=== PATIENT | male | born 1930 | race Caucasian/White ===

== ENCOUNTER 2017-08-03 07:06 | Emergency (ER) | payer MEDICARE, BC ==
[2017-08-03] MEDS ORDERED: ONDANSETRON 4 MG/2 ML VIAL IVP STA (07:31)
[2017-08-03] MEDS ORDERED: RX INFO: IV CONTRAST WAS GIVEN 1 EACH MISC MISCELLANE PRN (07:32)
[2017-08-03] MEDS ORDERED: FAMOTIDINE 20 MG/2 ML VIAL IV STA (07:32)
--- NOTE | 2017-08-03 07:38 | ED ---
General Adult HPI - General Chief complaint: Chest Pain Stated complaint: Chest/stomach pain Time Seen by Provider: 08/03/17 07:14 Source: patient, RN notes reviewed, old records reviewed Mode of arrival: wheelchair Limitations: no limitations - History of Present Illness Initial comments: 87-year-old male presents with chief complaint of abdominal pain and nausea vomiting. Patient has past medical history of CAD status post CABG. He does complain of some associated chest pain. Abdominal pain began yesterday was sharp and crampy in nature. He had approximately 20 episodes of vomiting throughout this morning. Patient has been unable to tolerate anything by mouth. Pain in his stomach is intermittent. Symptoms began after eating chicken. States his last bowel movement was yesterday morning and was normal. Denies melena. Denies rectal bleeding. Denies blood in his emesis. Patient states he has had subjective fever and chills. He also complains of shortness of breath which she attributes to known history of CAD. No history of asthma or COPD. - Related Data Home Medications Medication Instructions Recorded Confirmed Atenolol [Tenormin] 25 mg PO QAM 05/14/14 08/03/17 Atorvastatin [Lipitor] 20 mg PO HS 05/14/14 08/03/17 Clopidogrel [Plavix] 75 mg PO DAILY 05/14/14 08/03/17 Finasteride [Proscar] 5 mg PO DAILY 05/14/14 08/03/17 Hydrochlorothiazide [Hydrodiuril] 12.5 mg PO DAILY 05/14/14 08/03/17 Losartan [Cozaar] 50 mg PO HS 05/14/14 08/03/17 Pantoprazole Sodium [Protonix] 40 mg PO HS 05/14/14 08/03/17 Aspirin EC [Ecotrin Low Dose] 81 mg PO DAILY 02/29/16 08/03/17 Sucralfate [Carafate] 1 gm PO BID 02/29/16 08/03/17 Multivitamin [Men's Multi-Vitamin] 1 tab PO DAILY 03/01/16 08/03/17 Nitroglycerin Sl Tabs [Nitrostat] 0.4 mg SUBLINGUAL Q5M PRN 03/01/16 08/03/17 Glucosamine Sulfate 1,500 mg PO DAILY 04/29/16 08/03/17 Ranolazine [Ranexa] 500 mg PO BID 04/29/16 08/03/17 Allergies Allergy/AdvReac Type Severity Reaction Status Date / Time No Known Allergies Allergy Verified 08/03/17 08:24 Review of Systems ROS Statement: Those systems with pertinent positive or pertinent negative responses have been documented in the HPI. ROS Other: All systems not noted in ROS Statement are negative. Past Medical History Past Medical History: Coronary Artery Disease (CAD), Chest Pain / Angina, GERD/ Reflux, Hyperlipidemia, Hypertension, Myocardial Infarction (MT), Prostate Disorder Additional Past Medical History / Comment(s): hiatal hernia, arrythmia (denies Atrial fib or prior need for full anticoagulation), osteoarthritis of hips Last Myocardial Infarction Date:: 1988 History of Any Multi-Drug Resistant Organisms: None Reported Past Surgical History: Coronary Bypass/CABG, Heart Catheterization, Tonsillectomy Additional Past Surgical History / Comment(s): zoila cataracts Past Anesthesia/Blood Transfusion Reactions: No Reported Reaction Past Psychological History: No Psychological Hx Reported Smoking Status: Former smoker Past Alcohol Use History: None Reported Past Drug Use History: None Reported - Past Family History Father Family Medical History: Cancer Mother Family Medical History: Cancer Brother(s) Family Medical History: Cancer Sister(s) Family Medical History: Cancer General Exam Limitations: no limitations General appearance: alert, in no apparent distress Head exam: Present: atraumatic, normocephalic Eye exam: Present: normal appearance, PERRL ENT exam: Present: normal exam Neck exam: Present: normal inspection. Absent: tenderness, meningismus Respiratory exam: Present: normal lung sounds bilaterally, other (Mild tachypnea with good air entry). Absent: respiratory distress Cardiovascular Exam: Present: regular rate, normal rhythm, systolic murmur GI/Abdominal exam: Present: soft, distended, tenderness (Generalized tenderness to palpation), hypoactive bowel sounds Extremities exam: Present: normal inspection, normal capillary refill, other ( Bilateral distal pulses intact). Absent: pedal edema Back exam: Present: normal inspection, full ROM. Absent: tenderness Neurological exam: Present: alert, oriented X3, CN II-XII intact. Absent: motor sensory deficit Psychiatric exam: Present: normal affect, normal mood Skin exam: Present: warm, dry, intact. Absent: cyanosis, diaphoretic Course Vital Signs 08/03/17 08/03/17 08/03/17 07:10 08:08 09:15 Temperature 97.4 F L Pulse Rate 62 52 L 53 L Respiratory 22 20 16 Rate Blood Pressure 141/69 183/92 151/70 O2 Sat by Pulse 95 99 100 Oximetry - Reevaluation(s) Reevaluation #1: 08/03/17 09:23 Patient unable to tolerate liquids in the emergency department. EKG Findings - EKG Comments: EKG Findings:: Sinus rhythm, incomplete right bundle branch block, ventricular rate 57, IL interval 1 3200 ms QRS duration 92, QTC 443 Medical Decision Making - Medical Decision Making 87-year-old male presenting with epigastric abdominal pain and chest pain as well as vomiting and inability to tolerate anything by mouth. Abdominal examination: Distended, diffusely tender primarily in the epigastrium. Acute abdominal series obtained, this is negative. Laboratory studies reveal white blood cell count 6.7, hemoglobin 12.7, creatinine 1.26 which is patient's baseline. Troponin is 0.015, BMP normal, lipase normal. Liver enzymes normal. CT is obtained which is suggestive of esophageal intraluminal irregularities suggestive of foreign body, neoplasm or polyp. Patient does admit to being unable to tolerate any thing by mouth after eating chicken at 5 PM yesterday. Case discussed with Dr. Myrick, patient will be admitted for further evaluation and treatment. NPO, Zofran, Reglan, and IV fluids. - Lab Data Result diagrams: 08/03/17 07:29 08/03/17 07:29 Lab Results 08/03/17 08/03/17 08/03/17 Range/Units 07:29 07:29 07:29 WBC 6.3 (3.8-10.6) k/uL RBC 3.86 L (4.30-5.90) m/uL Hgb 12.7 L (13.0-17.5) gm/dL Hct 37.6 L (39.0-53.0) % MCV 97.4 (80.0-100.0) fL MCH 32.9 (25.0-35.0) pg MCHC 33.8 (31.0-37.0) g/dL RDW 13.1 (11.5-15.5) % Plt Count 166 (150-450) k/uL Neutrophils % 69 % Lymphocytes % 16 % Monocytes % 7 % Eosinophils % 5 % Basophils % 0 % Neutrophils # 4.4 (1.3-7.7) k/uL Lymphocytes # 1.0 (1.0-4.8) k/uL Monocytes # 0.4 (0-1.0) k/uL Eosinophils # 0.3 (0-0.7) k/uL Basophils # 0.0 (0-0.2) k/uL PT (9.0-12.0) sec INR (<1.2) APTT (22.0-30.0) sec Sodium 144 (137-145) mmol/L Potassium 3.9 (3.5-5.1) mmol/L Chloride 104 (98-107) mmol/L Carbon Dioxide 23 (22-30) mmol/L Anion Gap 17 mmol/L BUN 23 H (9-20) mg/dL Creatinine 1.26 H (0.66-1.25) mg/dL Est GFR (MDRD) Af Amer >60 (>60 ml/min/1.73 sqM) Est GFR (MDRD) Non-Af 54 (>60 ml/min/1.73 sqM) Glucose 107 H (74-99) mg/dL Plasma Lactic Acid Jovany (0.7-2.0) mmol/L Calcium 10.1 (8.4-10.2) mg/dL Magnesium 1.6 (1.6-2.3) mg/dL Total Bilirubin 0.9 (0.2-1.3) mg/dL AST 32 (17-59) U/L ALT 48 (21-72) U/L Alkaline Phosphatase 61 (38-126) U/L Total Creatine Kinase 84 (55-170) U/L CK-MB (CK-2) 2.6 H* (0.0-2.4) ng/mL CK-MB (CK-2) Rel Index 3.1 Troponin I 0.015 (0.000-0.034) ng/mL NT-Pro-B Natriuret Pep pg/mL Total Protein 6.9 (6.3-8.2) g/dL Albumin 4.4 (3.5-5.0) g/dL Amylase 86 (30-110) U/L Lipase 96 (23-300) U/L 01/09/18 01/09/18 01/09/18 Range/Units 07:29 07:29 07:29 WBC (3.8-10.6) k/uL RBC (4.30-5.90) m/uL Hgb (13.0-17.5) gm/dL Hct (39.0-53.0) % MCV (80.0-100.0) fL MCH (25.0-35.0) pg MCHC (31.0-37.0) g/dL RDW (11.5-15.5) % Plt Count (150-450) k/uL Neutrophils % % Lymphocytes % % Monocytes % % Eosinophils % % Basophils % % Neutrophils # (1.3-7.7) k/uL Lymphocytes # (1.0-4.8) k/uL Monocytes # (0-1.0) k/uL Eosinophils # (0-0.7) k/uL Basophils # (0-0.2) k/uL PT 9.9 (9.0-12.0) sec INR 1.0 (<1.2) APTT 24.6 (22.0-30.0) sec Sodium (137-145) mmol/L Potassium (3.5-5.1) mmol/L Chloride (98-107) mmol/L Carbon Dioxide (22-30) mmol/L Anion Gap mmol/L BUN (9-20) mg/dL Creatinine (0.66-1.25) mg/dL Est GFR (MDRD) Af Amer (>60 ml/min/1.73 sqM) Est GFR (MDRD) Non-Af (>60 ml/min/1.73 sqM) Glucose (74-99) mg/dL Plasma Lactic Acid Jovany 1.7 (0.7-2.0) mmol/L Calcium (8.4-10.2) mg/dL Magnesium (1.6-2.3) mg/dL Total Bilirubin (0.2-1.3) mg/dL AST (17-59) U/L ALT (21-72) U/L Alkaline Phosphatase (38-126) U/L Total Creatine Kinase (55-170) U/L CK-MB (CK-2) (0.0-2.4) ng/mL CK-MB (CK-2) Rel Index Troponin I (0.000-0.034) ng/mL NT-Pro-B Natriuret Pep 743 pg/mL Total Protein (6.3-8.2) g/dL Albumin (3.5-5.0) g/dL Amylase (30-110) U/L Lipase (23-300) U/L Disposition Clinical Impression: Chest pain, Esophageal foreign body Disposition: ADMITTED IP TO THIS [facility] Condition: Stable Referrals: Clyde Hassan MD [Primary Care Provider] - 1-2 days Decision to Admit Reason: Admit from EC Decision Date: 08/03/17 Decision Time: 10:45
[2017-08-03 07:45] LABS: Basophils % (A) 0 %; Eosinophils # (A) 0.3 k/uL (0-0.7); Eosinophils % (A) 5 %; HCT 37.6 % (39.0-53.0); HGB 12.7 gm/dL (13.0-17.5); Lymphocytes % (A) 16 %; MCH 32.9 pg (25.0-35.0); MCHC 33.8 g/dL (31.0-37.0); MCV 97.4 fL (80.0-100.0); Mean Platelet Volume 7.3; Monocytes # (A) 0.4 k/uL (0-1.0); Monocytes % (A) 7 %; Neutrophils # (A) 4.4 k/uL (1.3-7.7); Neutrophils % (A) 69 %; Platelet Count 166 k/uL (150-450); RBC 3.86 m/uL (4.30-5.90); RDW 13.1 % (11.5-15.5); WBC 6.3 k/uL (3.8-10.6)
[2017-08-03 07:54] LABS: Partial Thromboplastin Time 24.6 sec (22.0-30.0); Prothrombin Time 9.9 sec (9.0-12.0)
[2017-08-03 08:13] LABS: ALT 48 U/L (21-72); AST 32 U/L (17-59); Albumin 4.4 g/dL (3.5-5.0); Alkaline Phosphatase 61 U/L (38-126); Amylase 86 U/L (30-110); Anion Gap 17 mmol/L; Blood Urea Nitrogen 23 mg/dL (9-20); Calcium 10.1 mg/dL (8.4-10.2); Carbon Dioxide 23 mmol/L (22-30); Chloride 104 mmol/L (98-107); Glucose 107 mg/dL (74-99); Lipase 96 U/L (23-300); Magnesium 1.6 mg/dL (1.6-2.3); Potassium 3.9 mmol/L (3.5-5.1); Sodium 144 mmol/L (137-145); Total Bilirubin 0.9 mg/dL (0.2-1.3); Total Protein 6.9 g/dL (6.3-8.2)
[2017-08-03 08:24] LABS: Troponin I 0.015 ng/mL (0.000-0.034)
[2017-08-03 08:28] LABS: Creatine Kinase MB 2.6 ng/mL (0.0-2.4)
--- NOTE | 2017-08-03 08:29 | XR ---
EXAMINATION TYPE: XR abdomen acute w cxr DATE OF EXAM: 08/03/2017 COMPARISON: NONE HISTORY: Pain TECHNIQUE: Supine, upright, and left side down lateral decubitus views of the abdomen and frontal vi ew of the chest are obtained. FINDINGS: Changes of COPD are noted. Arthropathy of the shoulders. Hyperinflation. Postsurgical nation es. No consolidation. Degenerative change of the spine arthropathy of the hips. Vascular calcifications noted. Wall the aor ta is not clearly defined could be correlated with CT scan. Bowel gas pattern nonspecific. IMPRESSION: 1. Nonspecific abdomen.
[2017-08-03] MEDS ORDERED: SODIUM CHLORIDE 0.9% 1,000 ML IV SCH (09:00)
--- NOTE | 2017-08-03 09:11 | CT ---
EXAMINATION TYPE: CT abdomen pelvis w con DATE OF EXAM: 08/03/2017 COMPARISON: NONE INDICATION: chest pain, upper abd pain, vomiting DLP: 917.9 mGycm, Automated exposure control for dose reduction was used. CONTRAST: 100 mL of Omnipaque 300. Study performed without Oral Contrast TECHNIQUE: Axial images were obtained from above the diaphragm to the pubic rami in the axial plane a t 5 mm thick sections. Reconstructed images are reviewed on the computer in the coronal plane. FINDINGS: Limited CT sections are obtained the lung bases. The lung bases are clear. There is a moderate size hiatal hernia. Contrast within the distal esophagus compatible with reflux. There may be some fillin g with debris within the hiatal hernia. Consider direct visualization. Foreign body or polyp could be considered. Neoplasm is not excluded. CT ABDOMEN: Liver: Normal Spleen: Normal Pancreas: Normal Adrenal glands: The adrenal glands are normal. Gallbladder: Normal Kidneys: No masses are evident. No hydronephrosis is present. No cysts are present. Delayed images were obtained through the kidneys, which remain unremarkable. Aorta: Vascular calcification is within the aorta. Inferior vena cava: Normal. CT PELVIS: Loops of bowel within the abdomen and pelvis are normal. Loops of bowel are without oral contrast limiting the evaluation. No contrast from the esophagus is evident within the stomach. Note is made of diverticular changes within the sigmoid colon. No acute diverticulitis is evident. Appendix: Normal as visualized. Urinary bladder: Normal. Genitourinary structures: Prostate has mild prominence. Osseous structures: No suspicious lytic or sclerotic lesions. Degenerative changes are through the lo wer lumbar spine facets. IMPRESSIONS: 1. There may be a filling defect within the distal esophagus. Small to moderate size hiatal hernia i s present. Differential could include foreign body, polyp, or neoplasm. Consider direct visualization . 2. Contrast within the distal esophagus and hiatal hernia. However, no contrast is identified within the stomach or proximal small bowel loops. 3. Diverticulosis without acute diverticulitis.
[2017-08-03] MEDS ORDERED: GLUCAGON 1 MG/ML VIAL IVP STA (09:21)
[2017-08-03] MEDS ORDERED: ONDANSETRON 4 MG/2 ML VIAL IVP PRN (10:40)
[2017-08-03] MEDS ORDERED: NALOXONE 0.4 MG/ML 1 ML VIAL IV PRN (10:40)
--- NOTE | 2017-08-03 11:36 | P.CONS ---
History of Present Illness - Reason for Consult Consult date: 08/03/17 Dysphagia Requesting physician: J Luis Kim - History of Present Illness 87-year-old gentleman with a history of CAD previous bypass medically managed on aspirin Plavix presents with acute dysphagia. Patient ate [place] fried chicken last night around 5 PM. He took 3 bites of the chicken leg and developed dysphagia with chest pressure in the mid esophageal region. He has vomited several times undigested food. Denies hematemesis hematochezia melena. No history of this type with dysphagia. Denies shortness of breath. EGD April 2016 for evaluation of intermittent GERD and mild dysphagia identified mild antral gastritis and a small sliding type hiatal hernia but no evidence of esophagitis. Home medications include but not limited to baby aspirin, Plavix, omeprazole daily and Carafate [address] abdomen and pelvis reported a possible filling defect within the distal esophagus with a small to moderate hiatal hernia. Contrast within the distal esophagus however no contrast was identified within the stomach or proximal small bowel loops. Hemoglobin 12.7. White count 6.3. platelet 166. INR 1.0. BUN 23. Creatinine 1.2. Troponin 0.015. Review of Systems Constitutional: Denies fever, chills, sweats, weight gain, or loss. HEENT: Negative for migraines, blurred vision or loss, earaches, drainage, tinnitus, oral mucosal lesions, dysphagia, or odynophagia. Cardiac: CAD. CABG. PCI stent. Hypertension. Hyperlipidemia. MS. Negative for chest pain, arrhythmias, or palpitation. Respiratory: Negative for shortness of breath, hemoptysis, cough, or sputum production. Gastrointestinal: See HPI for pertinent findings. Genitourinary: Negative for hematuria, urgency, frequency, polyuria, dysuria, or penile discharge. Musculoskeletal: Negative for muscle aches, swelling, arthritis, and arthralgias. Neurologic: Negative for stroke or TIA. Endocrine: Negative for thyroid problems. Skin: Negative for rash or itching. Psychiatric: Negative history for depression and anxiety Past Medical History Past Medical History: Coronary Artery Disease (CAD), Chest Pain / Angina, GERD/ Reflux, Hyperlipidemia, Hypertension, Myocardial Infarction (MS), Prostate Disorder Additional Past Medical History / Comment(s): hiatal hernia, arrythmia (denies Atrial fib or prior need for full anticoagulation), osteoarthritis of hips Last Myocardial Infarction Date:: 1988 History of Any Multi-Drug Resistant Organisms: None Reported Past Surgical History: Coronary Bypass/CABG, Heart Catheterization, Tonsillectomy Additional Past Surgical History / Comment(s): zoila cataracts Past Anesthesia/Blood Transfusion Reactions: No Reported Reaction Past Psychological History: No Psychological Hx Reported Smoking Status: Former smoker Past Alcohol Use History: None Reported Past Drug Use History: None Reported - Past Family History Father Family Medical History: Cancer Mother Family Medical History: Cancer Brother(s) Family Medical History: Cancer Sister(s) Family Medical History: Cancer Medications and Allergies Home Medications Medication Instructions Recorded Confirmed Type Atenolol [Tenormin] 25 mg PO QAM 05/14/14 08/03/17 History Atorvastatin [Lipitor] 20 mg PO HS 05/14/14 08/03/17 History Clopidogrel [Plavix] 75 mg PO DAILY 05/14/14 08/03/17 History Finasteride [Proscar] 5 mg PO DAILY 05/14/14 08/03/17 History Hydrochlorothiazide [Hydrodiuril] 12.5 mg PO DAILY 05/14/14 08/03/17 History Losartan [Cozaar] 50 mg PO HS 05/14/14 08/03/17 History Pantoprazole Sodium [Protonix] 40 mg PO HS 05/14/14 08/03/17 History Aspirin EC [Ecotrin Low Dose] 81 mg PO DAILY 02/29/16 08/03/17 History Sucralfate [Carafate] 1 gm PO BID 02/29/16 08/03/17 History Multivitamin [Men's Multi-Vitamin] 1 tab PO DAILY 03/01/16 08/03/17 History Nitroglycerin Sl Tabs [Nitrostat] 0.4 mg SUBLINGUAL Q5M PRN 03/01/16 08/03/17 History Glucosamine Sulfate 1,500 mg PO DAILY 04/29/16 08/03/17 History Ranolazine [Ranexa] 500 mg PO BID 04/29/16 08/03/17 History Allergies Allergy/AdvReac Type Severity Reaction Status Date / Time No Known Allergies Allergy Verified 08/03/17 08:24 Physical Exam Vitals: Vital Signs Temp Pulse Resp BP Pulse Ox 08/03/17 11:16 53 L 16 146/73 100 08/03/17 09:15 53 L 16 151/70 100 08/03/17 08:08 52 L 20 183/92 99 08/03/17 07:10 97.4 F L 62 22 141/69 95 Intake and Output 08/02/17 08/03/17 08/03/17 22:59 06:59 14:59 Other: Weight 81.647 kg Patient Weight 08/04/17 06:59 Weight 81.647 kg General appearance: The patient is alert, oriented, in no acute distress. HET: Head is normocephalic and atraumatic. Pupils are equal and reactive. Oropharynx is clear without lesions. Neck: Supple without lymphadenopathy. Trachea midline. Heart: S1 S2. Regular rate and rhythm. Lungs: No crackles or wheezes are heard. Abdomen: Soft, nontender, nondistended with bowel sounds. No peritoneal signs. No palpable organomegaly or masses. Extremities: Normal skin color and turgor. No cyanosis, rash, ulceration, clubbing, or edema. Radial and pedal pulses are 2/4 bilaterally. Neurological: No focal deficits. Strength and sensation are grossly intact. Results CBC & Chem 7: 08/03/17 07:29 08/03/17 07:29 Labs: Abnormal Lab Results - Last 24 Hours (Table) 08/03/17 08/03/17 08/03/17 Range/Units 07:29 07:29 07:29 RBC 3.86 L (4.30-5.90) m/uL Hgb 12.7 L (13.0-17.5) gm/dL Hct 37.6 L (39.0-53.0) % BUN 23 H (9-20) mg/dL Creatinine 1.26 H (0.66-1.25) mg/dL Glucose 107 H (74-99) mg/dL CK-MB (CK-2) 2.6 H* (0.0-2.4) ng/mL CT scan - abdomen: report reviewed (Dr. Myrick) Assessment and Plan (1) Dysphagia Narrative/Plan: Acute dysphagia suspect foreign body after eating a chicken dinner yesterday afternoon with underlying cardiac disease requesting to be treated conservatively. Current Visit: Yes Status: Acute Code(s): R13.10 - DYSPHAGIA, UNSPECIFIED SNOMED Code(s): 32752475 (2) Esophageal foreign body Current Visit: Yes Status: Acute Code(s): T18.108A - UNSP FOREIGN BODY IN ESOPHAGUS CAUSING OTH INJURY, INIT SNOMED Code(s): 30979960 Plan: 1. EGD. 2. IV Protonix 20 mg twice daily. 3. Continue with nothing by mouth status. The transportation assistant has discussed the risks, benefits and alternative therapies for the above-mentioned procedure and for both sedation/analgesia as well as necessary blood product administration, if indicated, as they pertain to this patient. The patient has indicated understanding and acceptance of the risks and procedures discussed. Thank you for this kind referral and the opportunity to participate in the care of your patient. This consultation was discussed with Dr. Myrick. The impression and plan of care have been directed as dictated.
[2017-08-03] MEDS ORDERED: METOCLOPRAMIDE 5 MG/ML 2 ML VIAL IVP SCH (12:00)
[2017-08-03 14:57] VITALS: TEMP 96.9
[2017-08-03 16:19] VITALS: RESP 18
[2017-08-03] MEDS ORDERED: PROPOFOL 10 MG/ML 20 ML VIAL IV ONE (17:04)
[2017-08-03] MEDS ORDERED: SODIUM CHLORIDE 0.9% 900 ML IV ONE (17:45)
[2017-08-03 18:27] VITALS: BP 158/74; PULSE 55
[2017-08-03] MEDS ORDERED: PANTOPRAZOLE 40 MG/10 ML VIAL IV SCH (21:00)
[2017-08-04] MEDS ORDERED: PANTOPRAZOLE 40 MG/10 ML VIAL IV SCH (09:00)
--- NOTE | 2017-08-04 10:00 | PCN ---
PROCEDURE NOTE DATE OF SERVICE: 08/03/2017 REQUESTING PHYSICIAN: Dr. Clyde Hassan. BRIEF HISTORY: Patient is an 87-year-old pleasant white male, came to the emergency room with acute food dysphagia. He was eating a piece of chicken yesterday evening for dinner and could not swallow any further and since then he started complaining of some epigastric pain and chest pain. He came into the emergency room this morning and he is scheduled for an upper endoscopy at the bedside for foreign body removal. PROCEDURE PERFORMED: EGD with foreign body removal. PREOPERATIVE DIAGNOSIS: Acute for dysphagia. ANESTHESIA: IV sedation per Anesthesia. DESCRIPTION OF PROCEDURE: After informed consent was obtained from the patient, the procedure was performed in the Emergency Room at the bedside. IV conscious sedation was administered by Anesthesia under continuous monitoring. The Olympus GF 190 video endoscope was inserted in the mouth, esophagus intubated without any difficulty and immediately there was a large amount of retained liquid and solid food particles in the dilated esophagus. The scope was gently advanced into the distal esophagus and a large piece of meat was found impacted. Using the [employer], part of the piece was piecemealed and snared out and pulled out of the mouth. Subsequently, I was able to push the rest of the food bolus into the stomach and the scope at this time was advanced into the pylorus and duodenum. The bulb and the second part of the duodenum appeared normal. The scope at this time was withdrawn to the stomach adequately insufflated with air and upon careful examination, because of antrum body, cardia and fundus appeared normal. Scope was then withdrawn to the esophagus. The GE junction was located at 36 cm from the incisors. There was a distal esophageal stricture identified which did not impede the passage of the scope. The mucosa of the distal esophagus appeared very erythematous. At this time, several small chunks of meat that was located in the proximal and mid esophagus and gently I was able to push the food particles into the stomach without any difficulty. At this time, the procedure was terminated. The patient tolerated the procedure well. IMPRESSION: 1. Food bolus impaction in the distal esophagus, status post removal as described above. 2. Distal esophageal stricture. 3. Dilated tortuous esophagus suggestive of possible esophageal dysmotility. RECOMMENDATION: Findings of this examination were discussed with the patient's family. Today he was advised to remain on a clear liquid diet today and advance to soft diet tomorrow. He was also advised to start on Prilosec 20 mg daily and follow up in the office in 2 to 3 weeks. MMODL / IJN: [id number] /
== END 2017-08-03 18:27 | disposition other institution (70) ==
LOC: EC 07:06
DX: T18.128A Food in esophagus causing other injury, initial encounter (principal); R07.9 Chest pain, unspecified; R11.10 Vomiting, unspecified; R50.9 Fever, unspecified; R10.13 Epigastric pain; I25.10 Atherosclerotic heart disease of native coronary artery without angina pectoris; K21.9 Gastro-esophageal reflux disease without esophagitis; E78.5 Hyperlipidemia, unspecified; I10 Essential (primary) hypertension; I25.2 Old myocardial infarction; Z87.891 Personal history of nicotine dependence; Z79.01 Long term (current) use of anticoagulants; Z79.899 Other long term (current) drug therapy; Z95.1 Presence of aortocoronary bypass graft
CPT/HCPCS: 99285 ×2; 96374 ×2; 96375 ×4; 96361 ×10; 36415; 93005; 83880; 80053; 82150; 82550; 82553; 83605; 83690; 83735; 84484; 85025; 85610; 85730; 74022; 74177; 43247; J1610; J2765; J2405; Q9967; J2704

== ENCOUNTER 2017-11-16 10:09 | Emergency (ER) | payer MEDICARE, BC ==
[2017-11-16] MEDS ORDERED: GLUCAGON 1 MG/ML VIAL IVP STA (10:24)
[2017-11-16] MEDS ORDERED: METOCLOPRAMIDE 5 MG/ML 2 ML VIAL IVP STA (10:24)
--- NOTE | 2017-11-16 10:31 | ED ---
General Adult HPI <JulioJ Luis - Last Filed: 11/16/17 11:18> - General Source: patient, RN notes reviewed Mode of arrival: ambulatory Limitations: no limitations <Cricket Briggs - Last Filed: 11/16/17 12:32> - General Chief complaint: ENT Stated complaint: esophagus issues Time Seen by Provider: 11/16/17 10:24 - History of Present Illness Initial comments: This is a 87-year-old male presents emergency Department with chief complaint of food stuck in his esophagus. Patient states she's had this happened in July of this year in which he was told he had a hiatal hernia. Patient states that he was eating some chicken last night states it got caught which feels to be in his lower esophagus region towards his stomach. He states ever since and he cannot eat or drink anything. He has tried several things this morning and drinks coffee and states it comes right back up. He states this is similar symptoms he had last time. He denies any chest pain, shortness breath, abdominal pain, headache or dizziness. Patient did attempt to contact his GI physician who recommended him come to the emergency department. (Cricket Briggs) - Related Data Home Medications Medication Instructions Recorded Confirmed Atenolol [Tenormin] 25 mg PO DAILY 05/14/14 11/16/17 Atorvastatin [Lipitor] 20 mg PO HS 05/14/14 11/16/17 Clopidogrel [Plavix] 75 mg PO DAILY 05/14/14 11/16/17 Finasteride [Proscar] 5 mg PO DAILY 05/14/14 11/16/17 Hydrochlorothiazide [Hydrodiuril] 12.5 mg PO BID 05/14/14 11/16/17 Losartan [Cozaar] 50 mg PO HS 05/14/14 11/16/17 Pantoprazole Sodium [Protonix] 40 mg PO AC-SUPPER 05/14/14 11/16/17 Aspirin EC [Ecotrin Low Dose] 81 mg PO DAILY 02/29/16 11/16/17 Sucralfate [Carafate] 1 gm PO BID 02/29/16 11/16/17 Multivitamin [Men's Multi-Vitamin] 1 tab PO DAILY 03/01/16 11/16/17 Glucosamine Sulfate 1,500 mg PO DAILY 04/29/16 11/16/17 Ranolazine [Ranexa] 500 mg PO BID 04/29/16 11/16/17 amLODIPine [Norvasc] 2.5 mg PO DAILY 11/16/17 11/16/17 Allergies Allergy/AdvReac Type Severity Reaction Status Date / Time No Known Allergies Allergy Verified 11/16/17 10:57 Review of Systems ROS Other: All systems not noted in ROS Statement are negative. <J Luis Kim - Last Filed: 11/16/17 11:18> ROS Other: All systems not noted in ROS Statement are negative. <Cricket Briggs - Last Filed: 11/16/17 12:32> ROS Statement: Those systems with pertinent positive or pertinent negative responses have been documented in the HPI. Past Medical History Past Medical History: Coronary Artery Disease (CAD), Chest Pain / Angina, GERD/ Reflux, Hyperlipidemia, Hypertension, Myocardial Infarction (HI), Prostate Disorder Additional Past Medical History / Comment(s): hiatal hernia, arrythmia (denies Atrial fib or prior need for full anticoagulation), osteoarthritis of hips Last Myocardial Infarction Date:: 1988 History of Any Multi-Drug Resistant Organisms: None Reported Past Surgical History: Coronary Bypass/CABG, Heart Catheterization, Tonsillectomy Additional Past Surgical History / Comment(s): zoila cataracts Past Anesthesia/Blood Transfusion Reactions: No Reported Reaction Past Psychological History: No Psychological Hx Reported Smoking Status: Former smoker Past Alcohol Use History: None Reported Past Drug Use History: None Reported - Past Family History Father Family Medical History: Cancer Mother Family Medical History: Cancer Brother(s) Family Medical History: Cancer Sister(s) Family Medical History: Cancer <Cricket Briggs - Last Filed: 11/16/17 12:32> General Exam Limitations: no limitations General appearance: alert, in no apparent distress Head exam: Present: atraumatic, normocephalic, normal inspection Eye exam: Present: normal appearance, PERRL, EOMI. Absent: scleral icterus, conjunctival injection, periorbital swelling ENT exam: Present: normal exam, normal oropharynx, mucous membranes moist Neck exam: Present: normal inspection, full ROM. Absent: tenderness, meningismus, lymphadenopathy Respiratory exam: Present: normal lung sounds bilaterally. Absent: respiratory distress, wheezes, rales, rhonchi, stridor Cardiovascular Exam: Present: regular rate, normal rhythm, normal heart sounds. Absent: systolic murmur, diastolic murmur, rubs, gallop, clicks GI/Abdominal exam: Present: soft, normal bowel sounds. Absent: distended, tenderness, guarding, rebound, rigid <Cricket Briggs - Last Filed: 11/16/17 12:32> Vital Signs 11/16/17 10:18 Temperature 96.7 F L Pulse Rate 55 L Respiratory 18 Rate Blood Pressure 168/103 O2 Sat by Pulse 98 Oximetry Medical Decision Making <J Luis Kim - Last Filed: 11/16/17 11:18> <Cricket Briggs - Last Filed: 11/16/17 12:32> - Medical Decision Making The patient was seen and examined. It appears that he has an esophageal food bolus of chicken. It is felt as though he would require retrieval via endoscopy. He does have an established relationship with Dr. Myrick from gastroenterology. GI has been paged and case will be discussed with them shortly. The case also was discussed with PA and I agree with the findings as documented. (J Luis Kim) Case discussed with GI and the patient will be taken to an for seizure and discharged under their care. (Cricket Briggs) Disposition <J Luis Kim - Last Filed: 11/16/17 11:18> Is patient prescribed a controlled substance at d/c from ED?: No <Cricket Briggs - Last Filed: 11/16/17 12:32> Clinical Impression: Esophageal obstruction due to food impaction, Hypertension Disposition: ADMITTED IP TO THIS HOSP Condition: Stable Referrals: Clyde Hassan MD [Primary Care Provider] - 1-2 days
[2017-11-16 12:53] VITALS: RESP 16; TEMP 97.6
[2017-11-16] MEDS ORDERED: LACTATED RINGERS 1,000 ML IV ONE (12:55)
[2017-11-16] MEDS ORDERED: PROPOFOL 10 MG/ML 20 ML VIAL IV ONE (14:02)
--- NOTE | 2017-11-16 14:55 | P.PCN ---
Postoperative Diagnosis: Procedure: Esophagogastroduodenoscopy and removal of esophageal foreign body. Preoperative diagnosis: Obstructive dysphagia. Postoperative diagnosis: 1. Impacted piece of meat, first captured with the snare and broken up into a few pieces, then advanced into the stomach with gentle pressure of the endoscope. 2. Hiatal hernia. 3. Esophageal stricture not impeding the advancement of the endoscope. 4. Stomach and duodenum within normal limits. Preparation and sedation: Was provided by anesthesia. Brief clinical history: The patient is an 87-year-old male who presented to the emergency room this morning with obstructive dysphagia that started 5 PM yesterday when he was eating chicken. He had similar episodes in the past that required endoscopic intervention the last was in July of this year. Procedure: With the patient on his left lateral decubitus position and after informed consent and adequate sedation, I passed the Olympus-GIF 160 video upper endoscope through the cricopharyngeus down the esophagus. There was lot of secretions and food debris that were suctioned. The impacted piece of meat was seen in the distal esophagus. I captured it with the endoscope multiple times each time breaking off a piece of it until finally I was able to advance all the pieces into the stomach with gentle pressure of the endoscope. There was a benign appearing stricture that did not impede advancement of the endoscope at around 39 cm from the incisors. The endoscope was then passed through a hiatal hernia to the rest of the stomach which was insufflated with air and inspected in detail including the retroflex view in the cardia. Finally , the endoscope was passed through the pylorus into the duodenum. Pyloric channel, duodenal bulb, post bulbar area and descending duodenum appeared within normal limits. The distal esophagus proximal to the esophageal stricture showed friability and edema secondary to the impacted piece of meat and the intervention with the endoscope. No attempt was made today to dilate the stricture today. The patient tolerated the procedure well. Plan: The patient will stay on clear liquids today. He can advance to soft diet tomorrow as tolerated. I suggested he follows up in the office and we will consider scheduling elective upper endoscopy and dilation based on his course. In the meantime, he was advised to avoid hard meats and to chew his food well.
[2017-11-16 15:08] VITALS: BP 135/63; PULSE 53
== END 2017-11-16 13:00 | disposition other institution (70) ==
LOC: EC 10:09
DX: T18.128A Food in esophagus causing other injury, initial encounter (principal); I10 Essential (primary) hypertension; I25.119 Atherosclerotic heart disease of native coronary artery with unspecified angina pectoris; K21.9 Gastro-esophageal reflux disease without esophagitis; E78.5 Hyperlipidemia, unspecified; I25.2 Old myocardial infarction; Z95.1 Presence of aortocoronary bypass graft; Z95.818 Presence of other cardiac implants and grafts; Z87.891 Personal history of nicotine dependence; Z79.02 Long term (current) use of antithrombotics/antiplatelets; Z79.82 Long term (current) use of aspirin; Z79.899 Other long term (current) drug therapy
CPT/HCPCS: 43247; 99284; 96374; 96375; J1610; J2765; J2704

== ENCOUNTER 2017-12-23 10:55 | Day surgery (SDC) | payer MEDICARE, BC ==
[2017-12-21 11:11] VITALS: BMI 25.8
[~2017-12-23 10:55] MED LIST: LACTATED RINGERS 1,000 ML IV SCH
[2017-12-23 11:30] VITALS: TEMP 94.7
[2017-12-23] MEDS ORDERED: LIDOCAINE 1% 20 ML VIAL (10MG/ML) FOR IV START INTRADERMA ONE (11:31)
[2017-12-23] MEDS ORDERED: PROPOFOL 10 MG/ML 20 ML VIAL IV ONE (12:29)
[2017-12-23 13:12] VITALS: RESP 18
--- NOTE | 2017-12-23 13:21 | P.PCN ---
Date of Procedure: 12/23/17 Procedure(s) Performed: Procedure: Esophagogastroduodenoscopy and esophageal dilation using the Microvasive uizhuuj-mht-dhrap balloon dilator size 12-15 mm. Preoperative diagnosis: History of dysphagia including an episode of obstructive dysphagia in October 2017 requiring endoscopic intervention. Postoperative diagnosis: Hiatal hernia and the benign short distal esophageal stricture dilated up to 15 mm using the Microvasive evuvnpv-wic-cwzdd balloon dilator. Preparation and sedation: Was provided by anesthesia. Brief clinical history: The patient is an 87-year-old male who is scheduled for this evaluation because of history of dysphagia including an episode of obstructive dysphagia that he had in October of this year for which she came to the emergency room and he had endoscopic intervention for removal of impacted piece of meat. He was noted to have an esophageal stricture and he was recommended possible dilation in the future depending on his symptoms. The patient was recently evaluated in the office and was still having issues with certain solid food and was thus scheduled for this evaluation. Procedure: With the patient on his left lateral decubitus position and after informed consent and adequate sedation, I passed the Olympus-GIF 160 video upper endoscope through the cricopharyngeus down the esophagus. GE junction was around 40-41 cm from the incisors and there was a small sliding hiatal hernia. There was a benign short stricture at the level of the GE junction not restricting to the advancement of the endoscope. The stomach was then insufflated with air and inspected in detail including the retroflex view in the cardia. And finally, the endoscope was passed through the pylorus into the duodenum. The stomach, pyloric channel, duodenal bulb, post bulbar area and descending duodenum did not show any obvious abnormalities. I then proceeded to dilate the stricture. The Microvasive vjnkdkh-jpw-jkgvy balloon dilator size 12-15 mm was passed through the operating channel of the endoscope and was centered at the level of the stricture and was inflated in a stepwise fashion up to 15 mm. The patient tolerated the procedure well and did not have any immediate complications. Plan: The patient was reassured. He will stay on clear liquids today and then he can advance his diet tomorrow as tolerated. Further plans can be made based on his course. He will follow up with you as planned and I will be happy to see in the future if his symptoms recur.
[2017-12-23 13:24] VITALS: BP 128/78; PULSE 70
== END 2017-12-23 13:49 | disposition home or self-care (01) ==
LOC: ORWHC2ENDO 10:55
DX: K22.2 Esophageal obstruction (principal); K44.9 Diaphragmatic hernia without obstruction or gangrene; E78.5 Hyperlipidemia, unspecified; I25.2 Old myocardial infarction; I25.119 Atherosclerotic heart disease of native coronary artery with unspecified angina pectoris; M19.90 Unspecified osteoarthritis, unspecified site; N40.0 Benign prostatic hyperplasia without lower urinary tract symptoms; K21.9 Gastro-esophageal reflux disease without esophagitis; I10 Essential (primary) hypertension; Z95.1 Presence of aortocoronary bypass graft; Z79.82 Long term (current) use of aspirin; Z79.02 Long term (current) use of antithrombotics/antiplatelets; Z79.899 Other long term (current) drug therapy
CPT/HCPCS: 43249; J2704; C1726